=== PATIENT | female | born 1985 | race African-American/Black ===

== ENCOUNTER 2019-08-13 11:11 | Emergency (ER) | payer MEDICAID ==
[~2019-08-13] VITALS: Ht 165.1 cm; Wt 90.0 kg
[2019-08-13] MEDS ORDERED: ACETAMINOPHEN 500MG TABLET PO ONE (14:00)
[2019-08-13 15:41] VITALS: BP 110/78
== END 2019-08-13 15:43 | disposition home or self-care (01) ==
LOC: ER 11:11
DX: M25.571 Pain in right ankle and joints of right foot (principal); X50.1XXA Overexertion from prolonged static or awkward postures, initial encounter; Y93.89 Activity, other specified; Y92.013 Bedroom of single-family (private) house as the place of occurrence of the external cause
CPT/HCPCS: 73610; 81025; 99283

== ENCOUNTER 2022-05-26 12:01 | Emergency (ER) | payer MEDICAID ==
[~2022-05-26] VITALS: Ht 162.6 cm; Wt 91.0 kg
[~2022-05-26 12:01] MED LIST: FERR-63 PO; IBUP-2030 PO
[2022-05-26] MEDS ORDERED: IBUPROFEN 600MG TABLET PO ONE (14:00)
[2022-05-26] MEDS ORDERED: ACETAMINOPHEN 325MG TABLET PO ONE (14:00)
[2022-05-26] MEDS ORDERED: BACITRACIN ZINC OINT UDPKT TOP ONE (14:00)
[2022-05-26] MEDS ORDERED: LIDOCAINE HCL/PF 1% 10 MG/ML 5ML VIAL INFIL ONE (14:00)
[2022-05-26] MEDS ORDERED: WATER FOR IRRIGATION,STERILE 1,000 ML IRRIG.SOLN IR ONE (14:00)
[2022-05-26 14:12] VITALS: BP 160/110
[2022-05-26] MEDS ORDERED: WATER FOR IRRIGATION,STERILE 1,000 ML IR SCH (14:15)
[2022-05-26] MEDS ORDERED: TETR-65 MT (17:10)
[2022-05-26] MEDS ORDERED: IBUP-2028 MT (17:11)
== END 2022-05-26 17:21 | disposition home or self-care (01) ==
LOC: ER 12:01
DX: L02.416 Cutaneous abscess of left lower limb (principal); R03.0 Elevated blood-pressure reading, without diagnosis of hypertension
CPT/HCPCS: 10060; 96360; 99283; J3490; Z7610

== ENCOUNTER 2022-06-14 16:31 | Emergency (ER) | payer MEDICAID ==
[~2022-06-14] VITALS: Ht 167.6 cm; Wt 75.0 kg
[~2022-06-14 16:31] MED LIST changes: +IBUP-2028 MT; +TETR-65 MT
[2022-06-14] MEDS ORDERED: SODIUM CHLORIDE 0.9% 1,000 ML IV ONE (17:30)
[2022-06-14] MEDS ORDERED: DIPHENHYDRAMINE 50MG/ML VIAL IV ONE (17:30)
[2022-06-14 18:06] LABS: EOSINOPHILS % 0.1 % (0.0-5.0); HEMOGLOBIN. 14.3 g/dL (12.0-16.0); LYMPHOCYTES % 20.1 % (20.0-50.0); MEAN CORPUSCULAR HEMOGLOBIN 27.4 pg (28.0-32.0); MONOCYTES % 5.4 % (2.0-8.0); NEUTROPHILS % 73.4 % (40.0-76.0); RED BLOOD CELL COUNT 5.24 mill/uL (4.2-5.4); RED CELL DISTRIBUTION WIDTH 15.3 % (11.6-14.6)
[2022-06-14 18:24] LABS: HCG SCREEN NEGATIVE
[2022-06-14 19:05] LABS: CHLORIDE 104 mEq/L (98-107)
[2022-06-14 19:09] LABS: ETHANOL BLOOD < 10 mg/dL
[2022-06-14 19:17] LABS: MEAN PLATELET VOLUME 9.1 fl (7.4-10.4); PLATELET 362 x1000/uL (130-400)
[2022-06-14 19:36] LABS: *AMPHETAMINES SCREEN URINE NEGATIVE (NEGATIVE); *BARBITURATES SCREEN URINE NEGATIVE (NEGATIVE); *BENZODIAZEPINES SCREEN URINE NEGATIVE (NEGATIVE); *COCAINE SCREEN URINE NEGATIVE (NEGATIVE); METHADONE URINE SCREEN NEGATIVE (NEGATIVE); OPIATES URINE SCREEN NEGATIVE (NEGATIVE); PHENCYCLIDINE URINE SCREEN NEGATIVE (NEGATIVE)
[2022-06-14 19:38] VITALS: BP 117/73
[2022-06-14 19:49] LABS: CANNABINOID URINE SCREEN PRESUMTIVE POSITIVE (NEGATIVE)
== END 2022-06-14 20:00 | disposition left against medical advice (07) ==
LOC: ER 16:39
DX: R00.0 Tachycardia, unspecified (principal); R25.1 Tremor, unspecified; F12.10 Cannabis abuse, uncomplicated; R73.9 Hyperglycemia, unspecified; L02.31 Cutaneous abscess of buttock; L02.416 Cutaneous abscess of left lower limb
CPT/HCPCS: 36415; 80053; 80305; 80320; 84703; 85025; 93005; 96361; 96374; 99284; J1200; J7030; G0480